=== PATIENT | male | born 1990 | race Caucasian/White ===

== ENCOUNTER 2019-02-13 07:44 | Emergency (ER) | payer BC, OTHER ==
[~2019-02-13] VITALS: Ht 172.7 cm; Wt 90.6 kg
[2019-02-13] MEDS ORDERED: KETOROLAC 30 MG/ML VIAL (J1885) IV ONE (08:00)
[2019-02-13] MEDS ORDERED: ONDANSETRON 4MG/2ML VIAL (J2405) IV ONE (08:00)
[2019-02-13] MEDS ORDERED: NS 1,000 ML IV ONE (08:00)
[2019-02-13 08:24] LABS: BASO # 0.1 10^3/uL (0.0-0.2); BASO % 0.8 % (0.0-1.0); EOS # 0.2 10^3/uL (0.0-0.5); EOS % 2.5 % (0.0-3.0); HEMATOCRIT 46.4 % (42.0-52.0); HEMOGLOBIN 16.2 g/dl (13.5-17.5); LYMPH # 2.6 10^3/uL (1.5-5.0); LYMPH % 33.3 % (24.0-44.0); MEAN CORPUSCULAR HEMOGLOBIN 31.1 pg (27.0-33.0); MEAN CORPUSCULAR HGB CONC 34.9 g/dl (32.0-36.5); MEAN CORPUSCULAR VOLUME 89.1 fl (80.0-96.0); MONO # 0.8 10^3/uL (0.0-0.8); MONO % 10.5 % (0.0-5.0); NEUTROPHILS # 4.1 10^3/uL (1.5-8.5); NEUTROPHILS % 52.3 % (36.0-66.0); PLATELET COUNT, AUTOMATED 245 10^3/uL (150-450); RED BLOOD COUNT 5.21 10^6/uL (4.30-6.10); WHITE BLOOD COUNT 7.9 10^3/uL (4.0-10.0)
[2019-02-13 08:49] LABS: ALT/SGPT 36 U/L (12-78); BILIRUBIN,DIRECT 0.2 MG/DL (0.0-0.2); BILIRUBIN,TOTAL 1.4 MG/DL (0.2-1.0); BLOOD UREA NITROGEN 19 MG/DL (7-18); CALCIUM LEVEL 8.8 MG/DL (8.5-10.1); CARBON DIOXIDE LEVEL 28 MEQ/L (21-32); CHLORIDE LEVEL 107 MEQ/L (98-107); GLOMERULAR FILTRATION RATE > 60.0 (>60); GLUCOSE, FASTING 118 MG/DL (70-100); LIPASE 119 U/L (73-393); POTASSIUM SERUM 3.6 MEQ/L (3.5-5.1); SODIUM LEVEL 141 MEQ/L (136-145); TOTAL PROTEIN 7.3 GM/DL (6.4-8.2)
--- NOTE | 2019-02-13 08:54 | REP ---
Scrotal sonography: History: Left chest down to a. Findings: High-resolution bilateral scrotal sonography shows no evidence of intratesticular mass lesion on either side. There is a 4 mm cyst in the left testis. There is 2 mm cyst in the left epididymis. Testicular Doppler flow is normal bilaterally. Resistive indices are measured at 0.58 on the right and 0.55 on the left. Left testicular dimensions are 4.6 x 2.6 x 2.8 cm. The right testis measures 4.5 x 2.7 x 3.0 cm. There is a small left-sided hydrocele. Impression: No significant abnormality. Electronically Signed by Binh Lucero MD 02/13/2019 08:45 A
--- NOTE | 2019-02-13 09:44 | REP ---
CT abdomen and pelvis without IV or oral contrast: History: Left lower quadrant and left flank pain. CT findings: The preliminary digital clinical services consultant radiograph demonstrates a normal bowel gas pattern. There is a dextroconvex curvature in the lumbar spine. The lung bases are clear on axial CT images. The liver and the spleen are normal in size, homogeneous in texture. No adrenal lesion is seen on either side. The gallbladder and the pancreas are unremarkable. There is moderate hydronephrosis and hydroureter on the left. There is some perinephric stranding. The dilated renal pelvis and intrarenal collecting system have a somewhat increased attenuation raising question of hematuria. The obstruction is due to a 4 mm distal ureteral calculus located at the level of the posterior wall of the urinary bladder on the left consistent with ureterovesical junction stone. No other urinary tract calculus is appreciated. Normal appendix is seen in the right lower quadrant. Small and large bowel loops are unremarkable. Seminal vesicles and prostate are unremarkable. Impression: Obstructing 4 mm left UVJ stone with moderate hydronephrosis and hydroureter. Question increased density in the dilated renal pelvis and intrarenal collecting system hematuria versus other proteinaceous content. Electronically Signed by Binh Lucero MD 02/13/2019 09:46 A
[2019-02-13] MEDS ORDERED: PERC5TAB12 PO (10:13)
[2019-02-13] MEDS ORDERED: FLOM0.4C39 PO (10:15)
[2019-02-13 10:33] VITALS: BP 121/69
== END 2019-02-13 10:35 | disposition home or self-care (01) ==
LOC: M ED 07:44
DX: N20.0 Calculus of kidney (principal)
CPT/HCPCS: 74176; 76870; 80048; 80076; 81001; 83690; 85025; 93976; 96361; 96374; 96375; 99284; J1885; J2405

== ENCOUNTER 2019-12-22 20:56 | Emergency (ER) | payer OTHER ==
[~2019-12-22] VITALS: Ht 172.7 cm; Wt 91.2 kg
[~2019-12-22 20:56] MED LIST: FLOM0.4C39 PO; PERC5TAB12 PO
[2019-12-22] MEDS ORDERED: LIDOCAINE 1% MDV 20ML VIAL IM ONE (22:45)
[2019-12-22] MEDS ORDERED: BOOSTRIX/ADACEL VACCINE (DIPHTH/PERTUSS/ACELL/TETANUS) 0.5ML SYR IM ONE (22:45)
[2019-12-22] MEDS ORDERED: CEPHALEXIN 500 MG CAP PO ONE (23:15)
[2019-12-22] MEDS ORDERED: KEFL500C17 PO ×2 (23:16→23:42)
[2019-12-22 23:38] VITALS: BP 134/88
== END 2019-12-22 23:39 | disposition home or self-care (01) ==
LOC: M ED 20:56
DX: S61.211A Laceration without foreign body of left index finger without damage to nail, initial encounter (principal); W27.8XXA Contact with other nonpowered hand tool, initial encounter; Y92.9 Unspecified place or not applicable; F17.210 Nicotine dependence, cigarettes, uncomplicated

== ENCOUNTER 2022-02-18 08:15 | Emergency (ER) | payer OTHER, SELFPAY ==
[~2022-02-18] VITALS: Ht 172.7 cm; Wt 95.6 kg
[~2022-02-18 08:15] MED LIST changes: +KEFL500C17 PO
[2022-02-18 08:16] VITALS: BP 141/92
== END 2022-02-18 13:35 | disposition left against medical advice (07) ==
LOC: M ED 08:15
DX: Z53.21 Procedure and treatment not carried out due to patient leaving prior to being seen by health care provider (principal)